=== PATIENT | male | born 1945 | race Caucasian/White ===

== ENCOUNTER 2023-09-10 03:23 | Inpatient (IN) | payer MEDICARE, BC, SELFPAY ==
[2023-09-10] VITALS (8 sets, daily range): BP systolic 100–170; BP diastolic 46–83; BMI 42.5
[2023-09-10] MEDS: NSS 1000 IV (00:49)
[2023-09-10] MEDS: TYLENOL 650 MG PO (00:51)
--- NOTE | 2023-09-10 00:56 | ED.GENMED ---
History of Present Illness
<TRISTIN Altamirano - Last Filed: 09/10/23 01:27>
General
Chief Complaint: Fever
Source: patient
Exam Limitations: none
Time Seen by Provider: 09/10/23 00:31
Nursing documentation reviewed up to this point in time: agreed with
Travel History
Have you had any contact with someone who has COVID-19?: No
Do you have any symptoms of coronavirus? Fever > 100 degrees, chills, cough, shortness of breath, sore throat, loss of taste or smell, muscle aches, or headache?: Yes
Symptoms:: chills/fever
History of Present Illness
History of Present Illness:
77 y/o M presents via EMS after shaking and generalized weakness. Patient reports he has been having congestion, headache, body aches, chills, and fever starting today. He has had a cough with phlegm for 3-4 days. Patient has not taken any
medications for his symptoms. He reports that EMS stated he was short of breath when they brought him in. He reports no issues eating or sleeping. Patient denies NVD, chest pain, sore throat, palpitations, dizziness or LOC. No recent falls. He
denies sick contacts.
If applicable-neuro sx onset
Onset of symptoms known: Yes
Date of onset of symptoms: 09/06/23
Review of Systems
<TRISTIN Altamirano - Last Filed: 09/10/23 01:27>
Review of Systems
Allergies reviewed?: Yes
All Other Systems: ROS reviewed and negative except as documented in HPI and ROS
Constitutional: Reports fever and chills
EENT: Reports other (congestion)
Respiratory: Reports cough and trouble breathing
Cardiac: Reports no symptoms
ABD/GI: Reports no symptoms
: Reports no symptoms
Musculoskeletal: Reports other (body aches)
Skin: Reports no symptoms
Neurological: Reports headache
Endocrine: Reports no symptoms
Hematologic/Lymphatic: Reports no symptoms
Psychiatric: Reports no symptoms
Phy Exam
<TRISTIN Altamirano - Last Filed: 09/10/23 01:27>
General Physical Exam
General Presentation: well appearing and no apparent distress
General age: appears stated age
General Skin: warm and dry
General Habitus: normal
General Mental: alert
General Hydration: appears well hydrated
ENT Exam
ENT Exam: EOMI, TM's normal and pharyngeal erythema
Eye Exam
Eye Exam: PERRL, EOMI and conjunctiva normal
Cardiovascular Exam
Cardiovascular Exam: regular rate/rhythm, no edema, no gallop, no murmur and normal peripheral pulses
Pulmonary Exam
Pulmonary Exam: no respiratory distress, decreased breath sounds and other (wheeze in right upper lobe )
Gastrointestinal Exam
Gastrointestinal Exam: normal bowel sounds, non tender, soft and non distended
Neurological Exam
Neurological Exam: alert and oriented x3
Skin Exam
Skin Exam: normal color, warm/dry and no rash
Psychiatric Exam
Psychiatric Exam: normal mood/affect
Course
<TRISTIN Altamirano - Last Filed: 09/10/23 01:27>
Orders/Labs/Results
Orders:
Orders
09/10/23 00:31
Cardiac Monitoring- Treatment ONCE
0.9% Sodium Chloride 1000 ml [Nss] 1,000 ml IV BOLUS
09/10/23 00:32
Electrocardiogram (*1) Urgent
Reason for Study: Other
Other Reason for Exam: sepsis
EKG- Treatment ONCE
09/10/23 00:43
COVID-19 Antigen Urgent
Source: Nasal Swab
Complete Blood Count/With Diff Urgent
Comprehensive Metabolic Panel Urgent
Lactic Acid Q4H
Comment: CANCEL 2nd LACTIC ACID IF 1st LACTIC ACID IS LESS THAN 2
PTT Urgent
Procalcitonin Urgent
PCT Algorithmm Indication: Sepsis
Prothrombin Time Urgent
Troponin I Urgent
Blood Culture Q30M
LAUREN Source: Blood/Venous
Specimen Description:
Blood Culture Q30M
LAUREN Source: Blood/Venous
Specimen Description:
Influenza A+B Rapid Molecular Urgent
LAUREN Source: Nasal Swab
Specimen Description:
09/10/23 00:45
Acetaminophen [Tylenol] 650 mg PO NOW STA
09/10/23 01:36
CR Chest - 2 Views Urgent
Comment:
Reason For Exam: suspected infection
09/10/23 02:02
Urinalysis Reflex To Culture Urgent
Date Specimen was Collected: 09/10/23
Time Specimen was Collected: 02:01
09/10/23 02:31
Dexamethasone Sod Phosphate [Decadron] 10 mg IV NOW STA
Zosyn 4.5 grams IVPB NOW Piperacillin/Tazo 4.5 Gram [Zosyn] 4.5 gram in 100 ml IV NOW
Abnormal Lab Results
09/10/23 09/10/23
00:43 02:02
WBC 18.7 H 10^3/uL
(4.8-10.8)
RBC 4.45 L 10^6/uL
(4.70-6.10)
MCV 94.4 H fL
(80.0-94.0)
MCH 33.0 H pg
(27.0-31.0)
Abs Immat Gran (auto) 0.1 H 10^3/uL
(0-0.05)
Absolute Neuts (auto) 16.7 H 10^3/uL
(1.4-6.5)
Absolute Lymphs (auto) 0.6 L 10^3/uL
(1.2-3.4)
Absolute Monos (auto) 1.1 H 10^3/uL
(0.1-0.6)
Immature Gran % 0.6 H %
(0-0.5)
Neutrophils % 89.3 H %
(42.2-75.2)
Lymphocytes % 3.4 L %
(20.5-51.1)
PT 15.1 H Sec
(11.4-14.6)
Glucose 181 H mg/dl
(70-99)
Urine Ketones 1+ A
(Negative)
Urine Glucose 3+ A
(Negative)
09/10/23 00:43
09/10/23 00:43
Vital Signs
Initial and Last Documented VS:
Initial Vital Signs
Temp Pulse Resp BP Pulse Ox
102.9 F H 124 26 170/83 90
09/10/23 00:30 09/10/23 00:30 09/10/23 00:30 09/10/23 00:30 09/10/23 00:30
Last Documented Vital Signs
Temp Pulse Resp BP Pulse Ox
98.9 F 112 30 111/54 93
09/10/23 01:48 09/10/23 01:45 09/10/23 01:45 09/10/23 01:00 09/10/23 01:45
<Gabriel Heart, DO - Last Filed: 09/10/23 02:38>
Orders/Labs/Results
Orders:
Orders
09/10/23 00:31
Cardiac Monitoring- Treatment ONCE
0.9% Sodium Chloride 1000 ml [Nss] 1,000 ml IV BOLUS
09/10/23 00:32
Electrocardiogram (*1) Urgent
Reason for Study: Other
Other Reason for Exam: sepsis
EKG- Treatment ONCE
09/10/23 00:43
COVID-19 Antigen Urgent
Source: Nasal Swab
Complete Blood Count/With Diff Urgent
Comprehensive Metabolic Panel Urgent
Lactic Acid Q4H
Comment: CANCEL 2nd LACTIC ACID IF 1st LACTIC ACID IS LESS THAN 2
PTT Urgent
Procalcitonin Urgent
PCT Algorithmm Indication: Sepsis
Prothrombin Time Urgent
Troponin I Urgent
Blood Culture Q30M
LAUREN Source: Blood/Venous
Specimen Description:
Blood Culture Q30M
LAUREN Source: Blood/Venous
Specimen Description:
Influenza A+B Rapid Molecular Urgent
LAUREN Source: Nasal Swab
Specimen Description:
09/10/23 00:45
Acetaminophen [Tylenol] 650 mg PO NOW STA
09/10/23 01:36
CR Chest - 2 Views Urgent
Comment:
Reason For Exam: suspected infection
09/10/23 02:02
Urinalysis Reflex To Culture Urgent
Date Specimen was Collected: 09/10/23
Time Specimen was Collected: 02:01
09/10/23 02:31
Dexamethasone Sod Phosphate [Decadron] 10 mg IV NOW STA
Zosyn 4.5 grams IVPB NOW Piperacillin/Tazo 4.5 Gram [Zosyn] 4.5 gram in 100 ml IV NOW
Abnormal Lab Results
09/10/23 09/10/23
00:43 02:02
WBC 18.7 H 10^3/uL
(4.8-10.8)
RBC 4.45 L 10^6/uL
(4.70-6.10)
MCV 94.4 H fL
(80.0-94.0)
MCH 33.0 H pg
(27.0-31.0)
Abs Immat Gran (auto) 0.1 H 10^3/uL
(0-0.05)
Absolute Neuts (auto) 16.7 H 10^3/uL
(1.4-6.5)
Absolute Lymphs (auto) 0.6 L 10^3/uL
(1.2-3.4)
Absolute Monos (auto) 1.1 H 10^3/uL
(0.1-0.6)
Immature Gran % 0.6 H %
(0-0.5)
Neutrophils % 89.3 H %
(42.2-75.2)
Lymphocytes % 3.4 L %
(20.5-51.1)
PT 15.1 H Sec
(11.4-14.6)
Glucose 181 H mg/dl
(70-99)
Urine Ketones 1+ A
(Negative)
Urine Glucose 3+ A
(Negative)
09/10/23 00:43
09/10/23 00:43
Vital Signs
Initial and Last Documented VS:
Initial Vital Signs
Temp Pulse Resp BP Pulse Ox
102.9 F H 124 26 170/83 90
09/10/23 00:30 09/10/23 00:30 09/10/23 00:30 09/10/23 00:30 09/10/23 00:30
Last Documented Vital Signs
Temp Pulse Resp BP Pulse Ox
98.9 F 112 30 111/54 93
09/10/23 01:48 09/10/23 01:45 09/10/23 01:45 09/10/23 01:00 09/10/23 01:45
<TRISTIN Altamirano - Last Filed: 09/10/23 01:27>
MDM/Problems Addressed
Differential Diagnosis Includes:
COVID
Flu
Viral
PNA
<TRISTIN Altamirano - Last Filed: 09/10/23 01:27>
*Critical Care Note
Total Time (30-74mins, 75-104mins- exclusive of procedures): Not Applicable
ED Attending Note
<TRISTIN Altamirano - Last Filed: 09/10/23 01:27>
-
Portions of this chart may have been created with voice recognition software.� Occasional wrong word or��sound alike� substitutions may have occurred due to the inherent limitations of voice recognition software.
<Gabriel Heart, DO - Last Filed: 09/10/23 02:38>
ED Attending Note
Patient seen and examined by attending physician: Yes
I performed the substantive portion of visit, reviewed & personally made and approve the management plan that is documented in note by myself or ALLISON.: Yes
ED Attending Note:
Pleasant 77-year-old male presents with fever, chills, generalized weakness and cough. Patient states that he has been having productive cough for the last 3 to 4 days. He has not taken any medications for his symptoms. Patient was complaining of
dyspnea, exacerbated by exertion. Room air oxygen ranged from 88 to 92%. Started on oxygen. Patient does use CPAP at home. His has cancer just received a transplant and is immunocompromised at home. Patient was seen in conjunction with the
PA student. I have reviewed and agree with the history and treatment plan presented. On my independent physical exam, patient is awake, alert, and oriented x3 minimal to moderate acute distress. There is a productive cough present. Heart is
regular rate rhythm, lungs are diminished bilaterally. Skin is warm and dry. Moves all 4 extremities.
Vital signs are stable. Patient not hypoxic
Nursing note reviewed. I agree with nursing documentation up to this point in time.
Home Meds and allergies reviewed.
NUMBER AND COMPLEXITY OF PROBLEMS ADDRESSED AT THE ENCOUNTER
� Chronic conditions affecting care: Hypertension, hyperlipidemia, diabetes
� Acute Exacerbation and/or Progression of Chronic Illness: Pneumonia
� Differential Diagnosis includes: Pneumonia, COPD, CHF
AMOUNT AND/OR COMPLEXITY OF DATA TO BE REVIEWED AND ANALYZED
I performed an independent evaluation of the following and my interpretation is:
EKG:
CT:
X-rays: Retrocardiac pneumonia
Ultrasound:
Laboratory Studies: 18.7 white blood cell count
Other:
Review of other/old records:
Clinical information was obtained by an independent historian: Daughter present at the bedside
Prescriptions/Medications Considered but not given:
Further testing considered but not performed:
RISK OF COMPLICATIONS AND/OR MORBIDITY OR MORTALITY OF PATIENT MANAGEMENT
Social determinants of health affecting care: Good Social Support
Discussion with other providers: Hospitalist for admission
Escalation of care including admission/observation vs risk of discharge considered: Patient slightly hypoxic with pneumonia and 18,000 white count.
CRITICAL CARE NOTE:
Total Time (exclusive of procedures):
Update:
Discharge Plan
Departure
Patient Disposition: Admit
Date of Disposition: 09/10/23
Time of Disposition: 02:33
Admit to: Telemetry
Presentation/result/management discussed w/ accepting MD/DO: Hospitalist
Condition: Good
Discharge Problem:
Pneumonia
Prescriptions:
No Action
amlodipine-atorvastatin [Caduet] 1 EACH tablet
2 tab PO DAILY
Patient Comments:
12/14
sitagliptin phos-metformin [Janumet] 1 EACH tablet
1 ea PO DAILY
fiber 1 EACH tablet
1 tab PO DAILY
exenatide microspheres [Bydureon] 2 MG suspension,extended rel recon
2 mg SQ ACHS
sennosides [senna] 1 TABLET tablet
2 tab PO BID Qty: 0 0RF
atorvastatin 20 MG tablet
20 mg PO DAILY Qty: 0 0RF
polyethylene glycol 3350 17 GRAMS powder in packet
17 grams PO DAILY Qty: 0 0RF
magnesium hydroxide 30 ML suspension
30 ml PO DAILYPRN PRN (Reason: constipation) Qty: 0 0RF
aspirin 325 MG tablet,delayed release (DR/EC)
325 mg PO DAILY Qty: 0 0RF
docusate sodium 100 MG capsule
100 mg PO BID Qty: 0 0RF
oxycodone 5 MG tablet
5 mg PO Q4HPRN PRN (Reason: moderate-severe pain) Qty: 90 0RF
Rx Instructions:
dx josee
1-2 tabs
multivitamin with folic acid [Tab-A-Bernice] 1 TABLET tablet
1 tab PO DAILY Qty: 0 0RF
Referrals:
Abram Cruz MD [Family Provider] -
Interventions
Interventions:
*Risk Screen - Suicide Last Done: 09/10/23 00:30
*General Assessment Last Done: 09/10/23 00:30
*Neglect/Abuse Screening Last Done: 09/10/23 00:30
ED- Fall Risk Assessment Last Done: 09/10/23 00:53
*ED COVID-19 Vaccine History Last Done: 09/10/23 00:30
ED- Neurological Assessment Last Done: 09/10/23 01:02
ED-Skin Assessment Last Done: 09/10/23 01:01
[2023-09-10 00:58] LABS: % Basophils 0.5 % (0-2); % Eosinophils 0.3 % (0-6); % Immature Granulocytes 0.6 % (0-0.5); % Lymphocytes 3.4 % (20.5-51.1); % Monocytes 5.9 % (1.7-9.3); % Neutrophils 89.3 % (42.2-75.2); Absolute Basophils 0.1 10^3/uL (0-0.2); Absolute Eosinophils 0.1 10^3/uL (0-0.7); Absolute Immature Granulocytes 0.1 10^3/uL (0-0.05); Absolute Lymphocytes 0.6 10^3/uL (1.2-3.4); Absolute Monocytes 1.1 10^3/uL (0.1-0.6); Absolute Neutrophils 16.7 10^3/uL (1.4-6.5); Hemoglobin 14.7 g/dL (13.0-18.0); Mean Corpuscular Volume 94.4 fL (80.0-94.0); Mean Platelet Volume 9.6 fL (7.4-10.4); Nucleated Red Blood Cells % 0 % (-); Platelet Count 256 10^3/uL (130-400); Red Blood Cell Count 4.45 10^6/uL (4.70-6.10); Red Cell Dist. Width 13.1 % (11.5-14.5); White Blood Cell Count 18.7 10^3/uL (4.8-10.8)
[2023-09-10 01:10] LABS: APTT 30.2 Sec (23.4-35.0); INR 1.21; PT 15.1 Sec (11.4-14.6)
[2023-09-10 01:14] LABS: Lactic Acid 1.6 mmol/L (0.7-2.0)
[2023-09-10 01:15] LABS: ALT (SGPT) 23 U/L (0-50); AST (SGOT) 25 U/L (17-59); Albumin 4.3 g/dl (3.5-5.0); Alkaline Phosphatase 87 U/L (38-126); Blood Urea Nitrogen 16 mg/dl (9-20); Calcium 9.5 mg/dl (8.4-10.2); Carbon Dioxide 23 mmol/L (22-30); Chloride 101 mmol/L (98-107); Estimated Creatinine Clearance 89 ml/min; Glucose 181 mg/dl (70-99); Sodium 137 mmol/L (135-145); Total Bilirubin 1.1 mg/dl (0.2-1.3); Total Protein 7.4 g/dl (6.3-8.2); eGFR > 60.00
[2023-09-10 01:17] LABS: COVID-19 Antigen Negative (Negative)
[2023-09-10 01:26] LABS: Troponin I < 0.012 ng/ml
[2023-09-10 01:29] LABS: Procalcitonin 0.08 ng/ml (0.0-0.25)
[2023-09-10 02:14] LABS: Urine Albumin Trace (Neg - Trace); Urine Bilirubin Negative (Negative); Urine Character Clear (Clear); Urine Color Yellow; Urine Glucose 3+ (Negative); Urine Ketone 1+ (Negative); Urine Leukocyte Negative (Negative); Urine Nitrite Negative (Negative); Urine Occult Blood Negative (Negative); Urine Urobilinogen Negative (Neg - 1+)
--- NOTE | 2023-09-10 02:33 | HPS.HSE ---
Family Physician
-
Family Physician: Abram Cruz
Chief Complaint
-
fever
History of Present Illness
HPI: 77 yo M PMH NIDDM, spinal stenosis status post surgery; p/w fever. Patient also complained of congestion and subacute cough ongoing for weeks.
He denies to significant chest pain (only when he coughs), shortness of breath, urinary symptoms etc.
Medical History
Past Medical History
Past Medical History: Reports Other
Additional Past Medical History:
NIDDM, spinal stenosis status post surgery
Past Surgical History: Reports Other
Additional Past Surgical History:
L hand splinter removal
Lumbar spine surgery
BL hip surgery
Social History
Tobacco: Non-smoker
Alcohol: None
Personal:
Living: With Family
Family History
Family History: Not pertinent
Allergies / Home Medications
Allergies reflects when Allergies were last updated in [facility].
Home Medications with original date entered in [facility]
Allergy/Medication List:
Medications on admission are unable to be verified or confirmed at this time.
Review of Systems
-
Constitutional: Reports Fever
Physical Exam
Vital Signs
Vital Signs
Temp Pulse Resp BP Pulse Ox
37.2 C 112 30 111/54 93
09/10/23 01:48 09/10/23 01:45 09/10/23 01:45 09/10/23 01:00 09/10/23 01:45
Physical Exam
General: Well Developed, Well Nourished, Comfortable and Conversant
HEENT: NormoCephalic, Moist mucous membranes, Atraumatic and Oxygen (2L NC)
Respiratory: Clear and Non Labored Respirations; No Crackles or Accessory Resp Muscle Use
Cardiac: S1/S2 and Regular Rhythm; No Murmur or Rub
GI: Soft, Non Tender, Non Distended and Normal Bowel Sounds; No Organomegaly
Rectal: Deferred by Provider
Musculoskeletal: No Clubbing, No Cyanosis and No Edema
Skin: No Rash
Neuro: Awake and Alert
Psych: Calm and Intact Judgment/Insight
Laboratory Results
-
09/10/23 00:43
09/10/23 00:43
Laboratory Results
PT 15.1 Sec (11.4-14.6) H 09/10/23 00:43
INR 1.21 09/10/23:43
APTT 30.2 Sec (23.4-35.0) 09/10/23 00:43
Lactic Acid Cancelled 09/10/23 04:45
Total Bilirubin 1.1 mg/dl (0.2-1.3) 09/10/23 00:43
AST 25 U/L (17-59) 09/10/23 00:43
ALT 23 U/L (0-50) 09/10/23 00:43
Alkaline Phosphatase 87 U/L (38-126) 09/10/23 00:43
Troponin I < 0.012 ng/ml 09/10/23 00:43
Data Reviewed
-
Diagnostic Radiology: Image Personally Visualized and interpreted
Lab Data: Labs Reviewed by me
Impression/Plan
-
HPI: 77 yo M PMH NIDDM, spinal stenosis status post surgery; p/w fever. Patient also complained of congestion and subacute cough ongoing for weeks.
He denies to significant chest pain (only when he coughs), shortness of breath, urinary symptoms etc.
A/P:
# Fever, admitted for possible sepsis POA, ?CAP
Noted negative procalcitonin
Follow CXR report
follow blood Cx
COVID and flu negative, UA clean
s/p Zosyn in ED, cont vanc/Zosyn for now
With procalcitonin being negative, felt less likely community-acquired pneumonia, check CT PE for VTE as differential, NSS [address] for renal protection
Consider ID CS
# NIDDM
ISS
# spinal stenosis status post surgery
DVT ppx: Lovenox SQ
FC
[2023-09-10] MEDS: DECADRON 10 MG IV (02:37)
[2023-09-10] MEDS: ZOSYN 100 IV (02:37)
[2023-09-10] MEDS: VANCOCIN 540 MG IV (04:11)
[2023-09-10] MEDS: NSS 250 IV (04:13)
[2023-09-10] MEDS: NSS IV (04:13)
[2023-09-10 06:17] LABS: % Basophils 0.4 % (0-2); % Eosinophils 0.1 % (0-6); % Immature Granulocytes 1.4 % (0-0.5); % Lymphocytes 2.5 % (20.5-51.1); % Neutrophils 89.6 % (42.2-75.2); Absolute Basophils 0.1 10^3/uL (0-0.2); Absolute Immature Granulocytes 0.4 10^3/uL (0-0.05); Absolute Lymphocytes 0.8 10^3/uL (1.2-3.4); Absolute Monocytes 1.8 10^3/uL (0.1-0.6); Absolute Neutrophils 27.3 10^3/uL (1.4-6.5); Hematocrit 39.3 % (39.0-52.0); Hemoglobin 13.4 g/dL (13.0-18.0); Mean Corp Hgb Conc. 34.1 g/dL (33.0-37.0); Mean Corpuscular Hgb 33.4 pg (27.0-31.0); Nucleated Red Blood Cells % 0 % (-); Platelet Count 237 10^3/uL (130-400); Red Blood Cell Count 4.01 10^6/uL (4.70-6.10); Red Cell Dist. Width 13.2 % (11.5-14.5); White Blood Cell Count 30.5 10^3/uL (4.8-10.8)
[2023-09-10 06:50] LABS: Blood Urea Nitrogen 15 mg/dl (9-20); Calcium 8.9 mg/dl (8.4-10.2); Carbon Dioxide 20 mmol/L (22-30); Chloride 105 mmol/L (98-107); Estimated Creatinine Clearance 89 ml/min; Glucose 165 mg/dl (70-99); Magnesium 1.9 mg/dl (1.6-2.3); Potassium 4.1 mmol/L (3.5-5.1); Sodium 137 mmol/L (135-145); eGFR > 60.00
[2023-09-10 08:11] LABS: Glucose - Point of Care 183 mg/dl (70-99)
[2023-09-10] MEDS: ZOSYN 50 IV (08:12)
[2023-09-10] MEDS: LIPITOR 20 MG PO (08:12)
--- NOTE | 2023-09-10 08:24 | PHA.VAN.IN ---
Assessment
- Assessment
Renal Function: Appears similar to baseline
Concomitant Antimicrobials: piperacillin/tazobactam
AUC Dosing Plan
- Dosing Variables
Dosing Weight (kg): 123
Dosing CrCl (ml/min): 89
Vd coefficient (L/kg): 0.6
- Empiric Dosing
Initial / Loading Dose: 2000mg - 09/10 04:11
Maintenance Regimen: Vanc 1250mg Q12H
Estimated AUC (mcg*h/mL): 458
Estimated Peak (mcg*h/mL): 27.8
Estimated Trough (mcg/ml): 12.2
Estimated Half Life (H): 8.9
- Monitoring
No levels ordered at this time: consider levels in next few days
MRSA Screen: Ordered per protocol
Pharmacokinetics Vancomycin I
- -
Patient Age: 77
Patient Sex: Male
Vancomycin Day #: 1
Indication: Other
Requesting Provider: Dr. Sumner
Pertinent Antimicrobial Allergies:
NKDA
Height / Weight:
Height 5 ft 7 in
Actual Weight 123 kg
Pertinent Past Medical History: BMI ~42.5, DM
- Vital Signs / Lab Results
Temp Pulse Resp BP Pulse Ox
98.0 F 79 20 114/67 95
09/10/23 05:51 09/10/23 07:15 09/10/23 07:15 09/10/23 07:00 09/10/23 07:15
Lab Results - Hematology
09/10/23 09/10/23
00:43 05:49
WBC 18.7 H 30.5 H
Lab Results - Chemistry
09/10/23 09/10/23
00:43 05:49
BUN 16 15
Creatinine 0.9 0.9
Estimated Creat Clear 89 89
Albumin 4.3
09/10/23 09/10/23
00:43 04:45
Lactic Acid 1.6 Cancelled
Lab Results - Urine
09/10/23
02:02
Urine Nitrite (Reflex) Negative
Leukocyte Esterase Rfl Negative
Microbiology Results
09/10/23 00:43 Influenza Types A & B (HAILE) - Final
Nasal Swab Negative for Influenza A & B, NAAT
Negative results must be combined with clinical observations
and patient history.
Nucleic Acid Amplification test (NAAT)performed on the
[employer] NOW platform.
[2023-09-10 09:29] LABS: Glycohemoglobin (HgbA1c) 6.4 % (4.0-5.6)
[2023-09-10] MEDS: NOVOLOG FLEXPEN-LOW RESISTANCE 1 UNITS SC ×2 (09:39→17:56)
[2023-09-10] MEDS: ZITHROMAX INFUSION 250 IV (10:36)
[2023-09-10 11:46] LABS: Glucose - Point of Care 343 mg/dl (70-99)
[2023-09-10] MEDS: NOVOLOG FLEXPEN-LOW RESISTANCE 4 UNITS SC (13:43)
--- NOTE | 2023-09-10 14:55 | W.PN.UPDATE ---
Update Note
Progress Note Update
This note serves as supplemental O2 with history and physical dated today
� I suspect this is most likely bronchiolitis with possible viral trigger
� 94% on 2 L, continue incentive spirometer
� Continue steroids for now
� Leukocytosis, I suspect this is due to steroids although due to mild reports of diarrhea, will order C. difficile
� Azithromycin for bronchiolitis/atypical infection; start vancomycin, MRSA negative
--- NOTE | 2023-09-10 16:56 | PTCARENOTE ---
received pt via stretcher in room 2133 able to walk and transfer form stretcher to bed, vitals taken adn SCOTT, oriented to his room, ca;; wolf within reach, offers no concerns.
[2023-09-10 17:24] LABS: Glucose - Point of Care 175 mg/dl (70-99)
[2023-09-10] MEDS: LOVENOX 40 MG SC (17:56)
[2023-09-10 21:33] LABS: Glucose - Point of Care 179 mg/dl (70-99)
[2023-09-11 00:58] VITALS: BMI 42.5
[2023-09-11 05:09] LABS: Hematocrit 35.6 % (39.0-52.0); Hemoglobin 12.3 g/dL (13.0-18.0); Mean Corp Hgb Conc. 34.6 g/dL (33.0-37.0); Mean Corpuscular Hgb 33.4 pg (27.0-31.0); Mean Corpuscular Volume 96.7 fL (80.0-94.0); Mean Platelet Volume 10.3 fL (7.4-10.4); Platelet Count 231 10^3/uL (130-400); Red Blood Cell Count 3.68 10^6/uL (4.70-6.10); Red Cell Dist. Width 13.2 % (11.5-14.5); White Blood Cell Count 24.2 10^3/uL (4.8-10.8)
[2023-09-11 05:30] LABS: ALT (SGPT) 21 U/L (0-50); AST (SGOT) 20 U/L (17-59); Albumin 3.5 g/dl (3.5-5.0); Alkaline Phosphatase 82 U/L (38-126); Blood Urea Nitrogen 17 mg/dl (9-20); Calcium 8.9 mg/dl (8.4-10.2); Carbon Dioxide 24 mmol/L (22-30); Chloride 109 mmol/L (98-107); Estimated Creatinine Clearance 100 ml/min; Glucose 114 mg/dl (70-99); Magnesium 2.5 mg/dl (1.6-2.3); Potassium 3.9 mmol/L (3.5-5.1); Sodium 139 mmol/L (135-145); Total Bilirubin 0.6 mg/dl (0.2-1.3); Total Protein 6.3 g/dl (6.3-8.2); eGFR > 60.00
[2023-09-11 06:00] VITALS: BMI 42.6
[2023-09-11 07:40] VITALS: BP 103/60
[2023-09-11 07:43] LABS: Glucose - Point of Care 128 mg/dl (70-99)
[2023-09-11] MEDS: NOVOLOG FLEXPEN-LOW RESISTANCE SC ×3 (09:37→17:37)
[2023-09-11] MEDS: LIPITOR 20 MG PO (09:40)
--- NOTE | 2023-09-11 10:08 | CM ---
Reviewed the chart notes and spoke with the patient at the bedside. The patient resides with his spouse in a two story home with two steps to enter. The patient reports only DME is a CPAP machine. The patient denies VN in past. The patient
anticipates being discharged to home when medically stable. CM continues to be available to patient/family and is monitoring medical plan for needs at discharge.
Plan: Discharge to home when medically stable. No needs anticipated.
--- NOTE | 2023-09-11 11:15 | W.PN.HOSP.TC ---
Addendum entered and electronically signed by Leonel Milian MD 09/11/23 13:34:
#Bacteremia
-strep pneumoniaie
-ceftriaxone, cont azithro
ID consult
-repeat blood cultures
Addendum entered and electronically signed by Leonel Milian MD 09/11/23 13:27:
also rx cefdinir 300mg bid x5
Original Note:
Today's Communication/Plan
-
azithromycin x 5 day course
F/u PCP outpatient
incentive vickie
encourage ambulation
Assessment / Plan
Assessment / Plan
Physical Exam
General: Well Developed, Well Nourished, Comfortable and Conversant
HEENT: NormoCephalic, Moist mucous membranes, Atraumatic
Respiratory: Clear and Non Labored Respirations; No Crackles or Accessory Resp Muscle Use
Cardiac: S1/S2 and Regular Rhythm; No Murmur or Rub
GI: Soft, Non Tender, Non Distended and Normal Bowel Sounds; No Organomegaly
Rectal: Deferred by Provider
Musculoskeletal: No Clubbing, No Cyanosis and No Edema
Skin: No Rash
Neuro: Awake and Alert
Psych: Calm and Intact Judgment/Insight
HPI: 77 yo M PMH NIDDM, spinal stenosis status post surgery; p/w fever. Patient also complained of congestion and subacute cough ongoing for weeks.
He denies to significant chest pain (only when he coughs), shortness of breath, urinary symptoms etc.
A/P:
# Sepsis
#Bronchiolitis
-most likely viral in etiology
-CT imaging with evidence of atypical infection/bronchiolitis
�-Empiric abx - azithromycin x 5 day course
-patient symptoms improving
-negative procalcitonin - which makes viral etiology most likely
-F/u PCP outpatient
�Symptoms improved
# NIDDM
ISS
#HTN
-cont anti - htn
# spinal stenosis status post surgery
DVT ppx: Lovenox SQ
More than 30 minutes spent in discharge including
Final examination of the patient
Summarizing hospital stay
Instructions for continuing care to all relevant caregivers
Preparation of discharge records, prescriptions, and referral forms
Total time spent (35 in minutes):
Anticipated Discharge: Today
Subjective/Interval History
-
Date of Service: September 11, 2023
Patient's symptoms greatly improved, off oxygen
Objective Data
-
Labs:
Laboratory Results
09/11/23
04:29
WBC 24.2 H
Hgb 12.3 L
Hct 35.6 L
Plt Count 231
Sodium 139
Potassium 3.9
Chloride 109 H
Carbon Dioxide 24
BUN 17
Creatinine 0.8
Glucose 114 H
Calcium 8.9
Total Bilirubin 0.6
AST 20
ALT 21
Alkaline Phosphatase 82
Vital Signs:
Vital Signs
Temp Pulse Resp BP Pulse Ox
97.3 F 57 16 103/60 94
09/11/23 07:40 09/11/23 07:40 09/11/23 07:40 09/11/23 07:40 09/11/23 07:40
I&O
09/10/23 09/11/23 09/12/23
06:59 06:59 06:59
Intake Total 480 / 480
Balance 480 / 480
Review of Systems
-
History Source: Patient
All other systems: Not reviewed unless documented
Data Reviewed
-
Diagnostic Radiology: Image personally visualized and interpreted and Report Reviewed by me
CT Scan: Image personally visualized and interpreted and Report Reviewed by me
Labs: Labs Reviewed by me
--- NOTE | 2023-09-11 11:26 | W.DS.TRANS ---
DC Summary - Senior Contract Specialist
-
Discharge Instructions:
Discharge Diagnosis/Procedures bronchiolitis, possibly viral
Diet Low Cholesterol,Low Fat,Diabetic, Carb
Controlled
Activity As tolerated
Blood Work cbc in 3 days with pcp
Instructions:
Stand-Alone Forms:
Changes to Home Medications: Yes
Discharge Medications:
DC Medications w/original date entered in [facility]
amlodipine 5 mg tablet 5 mg PO DAILY Blood Pressure 09/10/23
aspirin 81 mg tablet,delayed release 81 mg PO QPM Blood Clot Prevention/Tx 09/10/23
atorvastatin 20 mg tablet (Lipitor) 20 mg PO HS High Cholesterol 09/10/23
exenatide microspheres 2 mg/0.85 mL subcutaneous auto-injector ([email or web address] BCise) 2 mg SC SERVIN@1700 Diabetes 09/10/23
metformin 1,000 mg tablet,extended release 24hr (osmotic) 1,000 mg PO BID Diabetes 09/10/23
multivitamin with folic acid 400 mcg tablet (Tab-A-Bernice) 1 tab PO QPM Supplement 09/10/23
tamsulosin 0.4 mg capsule 0.4 mg PO DAILY Urinary Issue 09/10/23
azithromycin 250 mg tablet 250 mg PO DAILY 4 days #4 tabs 09/11/23
Home Medication Changes
azithromycin 250 mg tablet 250 mg PO DAILY 4 days #4 tabs 09/11/23
Pending Results: No
[2023-09-11 11:56] LABS: Glucose - Point of Care 125 mg/dl (70-99)
[2023-09-11] MEDS: MIRALAX 17 GRAMS PO (13:18)
[2023-09-11] MEDS: ZITHROMAX INFUSION IV (13:20)
[2023-09-11] MEDS: ZITHROMAX INFUSION 250 IV (13:24)
[2023-09-11 15:35] VITALS: BP 122/62
[2023-09-11] MEDS: ROCEPHIN 2000 MG IV (16:02)
[2023-09-11] MEDS: STERILE WATER FOR INJECTION 20 ML IV (16:03)
--- NOTE | 2023-09-11 16:16 | PN.CDI ---
CDI
- -
CDI:
Physician Documentation Request
Admit Date: 09/10/23 03:23
Dear Doctor Maicol,
Patient admitted for sepsis.
Clinical Indicators:
Height: 5' 7'
Weight:271 lbs
BMI:42.5
If possible, please provide an associated diagnosis related to the abnormal BMI, such as:
Obese
Overweight
BMI is not significant
Other
BMI > or = to 40.0
Overweight
Obesity:
Due to excess calories
Drug induced
Due to other cause
Severe or morbid obesity:
With alveolar hypoventilation (Obesity hypoventilation syndrome)
Without alveolar hypoventilation
Use of terms such as suspected, likely, concern for, or probable (associated with a specific diagnosis that is being evaluated, monitored, or treated as if it exists) are acceptable and can be coded in the inpatient setting, when documented at the
time of discharge.
Thank you,
Sarah Rivera RN, BSN
CDI Specialist
Available via [place] text
Please use your independent medical judgment in providing your response.
--- NOTE | 2023-09-11 17:03 | CON.ID ---
Consultation
-
Date/Time Consultation Requested: 09/11/2023 1400
Date/Time Consultation Performed: 09/11/2023 1622
Requesting Provider: Dr. Milian
Performing Provider: Dr. Ortega
Reason for Consultation: Pneumococcal bacteremia
Chief Complaint / Past History
History of Present Illness
Fabian Wilkerson is a 77-year-old man being evaluated at the request of Dr. Milian in regards to pneumococcal bacteremia. History is obtained from chart review, along with patient interview.
The patient has a significant past medical history of diabetes mellitus, and reports that 3 days ago he had the acute onset of rigors while at home. He also admits to having some runny eyes along with some nasal congestion. He denies having any
fevers at this point in time, but does admit to having a cough with clear sputum. He overall did not feel well, and reports that because there was concern for possible infection (and his is immunocompromised) he came to the hospital for
further evaluation. Here he was found to have a marked leukocytosis. Blood cultures obtained at the time of admission are now showing pneumococcus. Infectious Diseases is asked to comment upon further antibiotic management.
The patient denies any recent travel. He denies any sick contacts, but does look after his grandchildren. He reports receiving the Pneumovax approximately 2 to 3 years ago. At this point in time he still has a slight cough, but reports feeling
much better than when he was admitted.
Past History
Additional Past Medical History:
Diabetes mellitus
HTN
Dyslipidemia
Additional Past Surgical History:
Bilateral hip replacement
Back surgery
Cholecystectomy
Allergy History:
No Known Allergies Allergy (Verified 09/10/23 00:55)
Medications Reviewed: Yes
Current Antibiotics:
Azithromycin
Ceftriaxone
Social History
Tobacco: Former Smoker
Alcohol: None
Drug: None
Personal:
Living: With Family
Employment: Retired
Review of Systems
Vital Signs
Temp Pulse Resp BP Pulse Ox
97.6 F 56 14 122/62 95
09/11/23 15:35 09/11/23 15:35 09/11/23 15:35 09/11/23 15:35 09/11/23 15:35
Physical Exam
Physical Exam
Constitutional: No Acute Distress, Comfortable and Non-toxic
Eyes: No Conjunctival Hemorrhage and Sclera Anicteric
Oral: No Thrush and No Ulcers
Cardiovascular: S1/S2 and S3/S4; Negative Murmur
Pulmonary: Coarse and Non Labored; Negative Wheezes, Rales or Rhonchi
Gastrointestinal: Soft, Non Tender, Non Distended and Normal Bowel Sounds
Genito-Urinary: Negative Isbell
Extremities: Negative Edema, Cyanosis or Erythema
Skin: Warm and Dry; Negative Rash or Jaundice
Neurological: Awake, Alert and Oriented
Psychological: Calm
Lab / Diagnostic Study Results
09/11/23 04:29
09/11/23 04:29
Abs Immat Gran (auto) 0.4 10^3/uL (0-0.05) H 09/10/23 05:49
Absolute Neuts (auto) 27.3 10^3/uL (1.4-6.5) H 09/10/23 05:49
Absolute Lymphs (auto) 0.8 10^3/uL (1.2-3.4) L 09/10/23 05:49
Absolute Monos (auto) 1.8 10^3/uL (0.1-0.6) H 09/10/23 05:49
Absolute Basos (auto) 0.1 10^3/uL (0-0.2) 09/10/23 05:49
Immature Gran % 1.4 % (0-0.5) H 09/10/23 05:49
Neutrophils % 89.6 % (42.2-75.2) H 09/10/23 05:49
Lymphocytes % 2.5 % (20.5-51.1) L 09/10/23 05:49
Monocytes % 6.0 % (1.7-9.3) 09/10/23 05:49
Eosinophils % 0.1 % (0-6) 09/10/23 05:49
Basophils % 0.4 % (0-2) 09/10/23 05:49
PT 15.1 Sec (11.4-14.6) H 09/10/23 00:43
INR 1.21 09/10/23 00:43
Lactic Acid Cancelled 09/10/23 04:45
Procalcitonin 0.08 ng/ml (0.0-0.25) 09/10/23 00:43
Microbiology Results
Micro:
09/11/23 14:05 Blood Culture - Pending
Blood/Venous
09/10/23 00:43 Blood Culture - Preliminary
Blood/Venous Streptococcus pneumoniae
Gram Stain - Preliminary
09/10/23 00:43 Blood Culture - Preliminary
Blood/Venous No Growth in 24 hours- Final report to follow
09/10/23 08:28 Nasal Screen MRSA (PCR) - Final
Nose MRSA not detected - performed by PCR methodology.
09/10/23 00:43 Influenza Types A & B (HAILE) - Final
Nasal Swab Negative for Influenza A & B, NAAT
Negative results must be combined with clinical observations
and patient history.
Nucleic Acid Amplification test (NAAT)performed on the
[facility] [employer] platform.
Imaging:
09/10/2023 CT chest: No evidence of pulmonary embolism. Scattered groundglass opacities most pronounced within the left lower lobe likely representing infectious bronchiolitis or atypical infection. No significant pleural effusion. Minimal
coronary artery calcification noted. Please see full dictation for additional detail.
Assessment / Plan
Invasive pneumococcal disease with bacteremia
Pneumonia
Leukocytosis
Fever
Diabetes mellitus
HTN
Dyslipidemia
Recommendations:
Continue with ceftriaxone and Azithromycin. Azithromycin can be transition to the oral route.
Repeat blood culture has been obtained and is pending.
Trend white count and temperature curve.
May be able to transition to an oral regimen in 24 to 48 hours depending upon clinical improvement, and clinical stability.
[2023-09-11 17:05] LABS: Glucose - Point of Care 82 mg/dl (70-99)
[2023-09-11] MEDS: LOVENOX 40 MG SC (17:41)
[2023-09-11 21:22] LABS: Glucose - Point of Care 88 mg/dl (70-99)
[2023-09-11 21:53] LABS: Hepatitis C Antibody Negative (Negative)
[2023-09-11 23:14] VITALS: BP 105/44
[2023-09-12 00:34] VITALS: BP 109/58
[2023-09-12 06:00] VITALS: BMI 42.4
[2023-09-12 06:18] LABS: Hematocrit 36.4 % (39.0-52.0); Hemoglobin 12.7 g/dL (13.0-18.0); Mean Corp Hgb Conc. 34.9 g/dL (33.0-37.0); Mean Corpuscular Hgb 33.7 pg (27.0-31.0); Mean Corpuscular Volume 96.6 fL (80.0-94.0); Platelet Count 261 10^3/uL (130-400); Red Blood Cell Count 3.77 10^6/uL (4.70-6.10); Red Cell Dist. Width 13.2 % (11.5-14.5); White Blood Cell Count 12.9 10^3/uL (4.8-10.8)
[2023-09-12 06:45] LABS: ALT (SGPT) 39 U/L (0-50); AST (SGOT) 30 U/L (17-59); Albumin 3.5 g/dl (3.5-5.0); Alkaline Phosphatase 76 U/L (38-126); Blood Urea Nitrogen 19 mg/dl (9-20); Calcium 8.6 mg/dl (8.4-10.2); Carbon Dioxide 26 mmol/L (22-30); Chloride 106 mmol/L (98-107); Estimated Creatinine Clearance 89 ml/min; Glucose 110 mg/dl (70-99); Magnesium 2.3 mg/dl (1.6-2.3); Potassium 4.2 mmol/L (3.5-5.1); Sodium 138 mmol/L (135-145); Total Bilirubin 0.6 mg/dl (0.2-1.3); Total Protein 6.4 g/dl (6.3-8.2); eGFR > 60.00
[2023-09-12 07:35] LABS: Glucose - Point of Care 127 mg/dl (70-99)
[2023-09-12] MEDS: NOVOLOG FLEXPEN-LOW RESISTANCE SC ×3 (07:47→16:03)
[2023-09-12 08:05] VITALS: BP 137/62
[2023-09-12] MEDS: MIRALAX 17 GRAMS PO (08:07)
[2023-09-12] MEDS: LIPITOR 20 MG PO (08:07)
[2023-09-12] MEDS: ZITHROMAX 500 MG PO (08:07)
[2023-09-12 11:40] LABS: Glucose - Point of Care 110 mg/dl (70-99)
--- NOTE | 2023-09-12 12:21 | W.PN.HOSP.TC ---
Addendum entered and electronically signed by Leonel Milian MD 09/14/23 18:31:
Overweight
Addendum entered and electronically signed by Leonel Milian MD 09/13/23 15:40:
[id number]
Addendum entered and electronically signed by Leonel Milian MD 09/12/23 13:27:
If repeat blood culture remains negative, can transition to oral cefdinir 300mg BID, to complete an additional 7 days of therapy.
Original Note:
Today's Communication/Plan
-
abx - ceftriaxone and flagyl
f/u repeat blood cultures
id recs
Assessment / Plan
Assessment / Plan
Physical Exam
General: Well Developed, Well Nourished, Comfortable and Conversant
HEENT: NormoCephalic, Moist mucous membranes, Atraumatic
Respiratory: Clear and Non Labored Respirations; No Crackles or Accessory Resp Muscle Use
Cardiac: S1/S2 and Regular Rhythm; No Murmur or Rub
GI: Soft, Non Tender, Non Distended and Normal Bowel Sounds; No Organomegaly
Rectal: Deferred by Provider
Musculoskeletal: No Clubbing, No Cyanosis and No Edema
Skin: No Rash
Neuro: Awake and Alert
Psych: Calm and Intact Judgment/Insight
HPI: 77 yo M PMH NIDDM, spinal stenosis status post surgery; p/w fever. Patient also complained of congestion and subacute cough ongoing for weeks.
He denies to significant chest pain (only when he coughs), shortness of breath, urinary symptoms etc.
A/P:
# Sepsis
#Bronchiolitis
-most likely viral in etiology although bacteremic
-CT imaging with evidence of atypical infection/bronchiolitis
�-Empiric abx - azithromycin x 5 day course; started on ceftriaxone
-patient symptoms improving
-F/u PCP outpatient
�Symptoms improved
#Bacteremia
� Most likely pneumonia as source
� 2 g ceftriaxone daily, azithromycin
� Follow-up repeat blood cultures
�ID consulted
� Most likely DC tomorrow on oral regimen
# NIDDM
ISS
#HTN
-cont anti - htn
# spinal stenosis status post surgery
DVT ppx: Lovenox SQ
Anticipated Discharge: Within 24 hours
Subjective/Interval History
-
Date of Service: September 12, 2023
No acute events overnight
Objective Data
-
Labs:
Laboratory Results
09/12/23
05:30
WBC 12.9 H
Hgb 12.7 L
Hct 36.4 L
Plt Count 261
Sodium 138
Potassium 4.2
Chloride 106
Carbon Dioxide 26
BUN 19
Creatinine 0.9
Glucose 110 H
Calcium 8.6
Total Bilirubin 0.6
AST 30
ALT 39
Alkaline Phosphatase 76
Vital Signs:
Vital Signs
Temp Pulse Resp BP Pulse Ox
97.9 F 59 16 137/62 94
09/12/23 08:05 09/12/23 08:05 09/12/23 08:05 09/12/23 08:05 09/12/23 10:58
I&O
09/11/23 09/12/23 09/13/23
06:59 06:59 06:59
Intake Total 480 / 480 2260 / 2260
Balance 480 / 480 2260 / 2260
Review of Systems
-
History Source: Patient
All other systems: Not reviewed unless documented
Data Reviewed
-
Diagnostic Radiology: Image personally visualized and interpreted and Report Reviewed by me
CT Scan: Image personally visualized and interpreted and Report Reviewed by me
Labs: Labs Reviewed by me
[2023-09-12] MEDS: ROCEPHIN 2000 MG IV (13:01)
[2023-09-12] MEDS: STERILE WATER FOR INJECTION 20 ML IV (13:01)
--- NOTE | 2023-09-12 13:10 | W.PN.ID1 ---
Date of Service
Date of Service: September 12, 2023
Today's Communication
Continue antibiotics. See below�
Assessment / Plan
Invasive pneumococcal disease with bacteremia
Pneumonia
Leukocytosis
Fever
Diabetes mellitus
HTN
Dyslipidemia
Recommendations:
Repeat blood cultures pending. Currently day #4 antibiotic therapy.
Marked improvement in white count noted.
If repeat blood culture remains negative, can transition to oral cefdinir 300mg BID, to complete an additional 7 days of therapy.
����������������������������������������������������������
Chief Complaint
-: Bacteremia
Subjective / Review of Systems
Review of Systems: No Fever and No Chills
Vital Signs / Physical Exam
Vital Signs
Vital Signs
Temp Pulse Resp BP Pulse Ox
97.9 F 59 16 137/62 94
09/12/23 08:05 09/12/23 08:05 09/12/23 08:05 09/12/23 08:05 09/12/23 10:58
Physical Exam
Constitutional: No Acute Distress, Comfortable and Non-toxic
Eyes: No Conjunctival Hemorrhage and Sclera Anicteric
Cardiovascular: S1/S2; Negative S3/S4
Pulmonary: Clear; Negative Wheezes, Rales or Rhonchi
Gastrointestinal: Soft, Non Tender and Non Distended
Neurological: Awake and Alert
Psychological: Calm
Objective Data
Lab Data
Lab Results
09/12/23 05:30
09/12/23 05:30
PT 15.1 Sec (11.4-14.6) H 09/10/23 00:43
INR 1.21 09/10/23 00:43
APTT 30.2 Sec (23.4-35.0) 09/10/23 00:43
Estimated Creat Clear 89 ml/min 09/12/23 05:30
Lactic Acid Cancelled 09/10/23 04:45
Total Bilirubin 0.6 mg/dl (0.2-1.3) 09/12/23 05:30
AST 30 U/L (17-59) 09/12/23 05:30
ALT 39 U/L (0-50) 09/12/23 05:30
Alkaline Phosphatase 76 U/L (38-126) 09/12/23 05:30
Most recent labs reviewed.
Micro Results:
09/10/23 00:43 Blood Culture - Preliminary
Blood/Venous Streptococcus pneumoniae
Gram Stain - Preliminary
09/10/23 00:43 Blood Culture - Preliminary
Blood/Venous No Growth in 48 hours- Final report to follow
09/11/23 14:05 Blood Culture - Pending
Blood/Venous
09/10/23 08:28 Nasal Screen MRSA (PCR) - Final
Nose MRSA not detected - performed by PCR methodology.
09/10/23 00:43 Influenza Types A & B (HAILE) - Final
Nasal Swab Negative for Influenza A & B, NAAT
Negative results must be combined with clinical observations
and patient history.
Nucleic Acid Amplification test (NAAT)performed on the
[facility] platform.
Imaging:
09/10/2023 CT chest: No evidence of pulmonary embolism. Scattered groundglass opacities most pronounced within the left lower lobe likely representing infectious bronchiolitis or atypical infection. No significant pleural effusion. Minimal
coronary artery calcification noted. Please see full dictation for additional detail.
Care Review
Plan reviewed with: Physician (Hospitalist)
--- NOTE | 2023-09-12 13:27 | W.DS.TRANS ---
DC Summary - Audit Senior Associate
-
Discharge Instructions:
Discharge Diagnosis/Procedures bronchiolitis
Bacteremia
Diet Low Cholesterol,Low Fat,Diabetic, Carb
Controlled
Activity As tolerated
Blood Work cbc in 3 days with pcp
Instructions:
Stand-Alone Forms:
Changes to Home Medications: Yes
Discharge Medications:
DC Medications w/original date entered in [facility]
amlodipine 5 mg tablet 5 mg PO DAILY Blood Pressure 09/10/23
aspirin 81 mg tablet,delayed release 81 mg PO QPM Blood Clot Prevention/Tx 09/10/23
atorvastatin 20 mg tablet (Lipitor) 20 mg PO HS High Cholesterol 09/10/23
exenatide microspheres 2 mg/0.85 mL subcutaneous auto-injector (ByduIkanos BCise) 2 mg SC SERVIN@1700 Diabetes 09/10/23
metformin 1,000 mg tablet,extended release 24hr (osmotic) 1,000 mg PO BID Diabetes 09/10/23
multivitamin with folic acid 400 mcg tablet (Tab-A-Bernice) 1 tab PO QPM Supplement 09/10/23
tamsulosin 0.4 mg capsule 0.4 mg PO DAILY Urinary Issue 09/10/23
cefdinir 300 mg capsule 300 mg PO Q12H 7 days #14 caps 09/12/23
Home Medication Changes
cefdinir 300 mg capsule 300 mg PO Q12H 7 days #14 caps 09/12/23
Pending Results: No
--- NOTE | 2023-09-12 13:45 | CM ---
Reviewed the chart notes and spoke with the patient at the bedside. IMM signed and placed on chart. The patient is being discharged to home today. The patient's spouse will provide transportation. CM continues to be available to patient/family
and is monitoring medical plan for needs at discharge.
Plan: Discharge to home today.
[2023-09-12 15:18] VITALS: BP 112/59
--- NOTE | 2023-09-12 15:30 | CARDSERVLU ---
Echocardiogram with [facility] completed after protocol screening completed. Allergies verified.
Patent IV site: _Rt AC____
IV site flushed with 0.9% NaCl pre and post administration.
Diluted bolus method utilized to enhance visualization of ventricular sweeney.
Total volume given: _3.0___ mL
Patient tolerated all procedures well without complications.
[2023-09-12 16:03] LABS: Glucose - Point of Care 95 mg/dl (70-99)
[2023-09-12] MEDS: LOVENOX 40 MG SC (17:42)
--- NOTE | 2023-09-12 18:31 | PTCARENOTE ---
Patient's echo results and negative blood culture communicated with , states patient cleared for discharge. This RN reviewed patient's discharge instructions and medications with patient, patient verbalized understanding. Patient's B/L AC IVs
removed by this RN, belongings gathered in room by patient. Patient being transported home by spouse, told to ring call [facility] when spouse pulls up to main lobby.
== END 2023-09-12 19:21 | disposition home or self-care (01) | DRG 872 ==
LOC: 2 NORTH 03:23
PROVIDERS: ADMITTING PHYSICIAN Internal Medicine; ATTENDING PHYSICIAN Internal Medicine; CONSULT PHYSICIAN Internal Medicine Infectious Disease; EMERGENCY PHYSICIAN Student in an Organized Health Care Education/Training Program; FAMILY PHYSICIAN Internal Medicine
DX: A40.3 Sepsis due to Streptococcus pneumoniae (principal); Z68.41 Body mass index [BMI] 40.0-44.9, adult; J21.9 Acute bronchiolitis, unspecified; E11.9 Type 2 diabetes mellitus without complications; Z11.52 Encounter for screening for COVID-19; Z87.891 Personal history of nicotine dependence; I11.9 Hypertensive heart disease without heart failure; E78.5 Hyperlipidemia, unspecified; M48.00 Spinal stenosis, site unspecified; E66.3 Overweight
CPT/HCPCS: 71046; 71275; 80048; 80053; 81003; 82962; 83036; 83605; 83735; 84145; 84484; 85025; 85027; 85610; 85730; 86803; 87040; 87149; 87186; 87205; 87502; 87641; 87811; 93005; 93306; 96361; 96365; 96375; 99285; Q9967